=== PATIENT | male | born 1950 | race African-American/Black ===

== ENCOUNTER 2016-11-12 05:41 | Emergency (ER) | payer OTHER, MEDICARE ==
[~2016-11-12] VITALS: Ht 177.8 cm; Wt 84.0 kg
[2016-11-12] MEDS ORDERED: KETOROLAC 60MG/2ML VIAL IM ONE (07:00)
[2016-11-12 07:15] VITALS: BP 181/97
== END 2016-11-12 09:30 | disposition home or self-care (01) ==
LOC: ER 05:49
DX: M25.512 Pain in left shoulder (principal); M79.632 Pain in left forearm; I10 Essential (primary) hypertension; Z88.0 Allergy status to penicillin; V43.52XA Car driver injured in collision with other type car in traffic accident, initial encounter
CPT/HCPCS: 73030; 73090; 73130; 96372; 99284; J1885